=== PATIENT | male | born 1960 | race Caucasian/White ===

== ENCOUNTER 2021-01-04 16:21 | Emergency (ER) | payer OTHER ==
[2021-01-04 16:34] VITALS: PULSE 65; TEMP 98.5; BMI 26.8
[2021-01-04 17:07] VITALS: BP 165/78
[2021-01-04 18:11] LABS: URINE APPEARANCE CLEAR; URINE BILIRUBIN NEGATIVE (NEGATIVE); URINE COLOR YELLOW; URINE GLUCOSE (UA) NEGATIVE (NEGATIVE); URINE KETONE NEGATIVE (NEGATIVE); URINE LEUK ESTERASE NEGATIVE (NEGATIVE); URINE NITRITE NEGATIVE (NEGATIVE); URINE PROTEIN NEGATIVE (NEGATIVE); URINE UROBILINOGEN 0.2 mg/dL (0.2-1.0)
[2021-01-04 18:45] LABS: EOS % 2.9 % (0-4.5); HEMATOCRIT 45.1 % (35.4-49); HEMOGLOBIN 15.3 GM/dL (11.7-16.9); LYMPH % 32.9 % (8-40); MCH 30.9 pg (25.7-33.7); MCHC 33.9 g/dl (32.0-35.9); MEAN CELL VOLUME 91.4 fl (80-96); MEAN PLT VOLUME 8.1 fl (7.5-11.1); MONO % 7.4 % (3.8-10.2); NEUT % 55.8 % (42.8-82.8); PLATELET COUNT 219 K/MM3 (134-434); RBC 4.93 M/mm3 (4.00-5.60); RDW 13.8 % (11.9-15.9); WHITE BLOOD COUNT 6.6 K/mm3 (4.0-10.0)
[2021-01-04 18:55] LABS: INR 1.07 (0.83-1.09); PROTHROMBIN TIME (PATIENT) 13.1 SEC (9.7-13.0)
[2021-01-04 18:57] LABS: ACTIVATED PTT 31.8 SECONDS (25.2-36.5)
[2021-01-04 19:01] LABS: CHLORIDE 107 mmol/L (98-107); POTASSIUM 4.7 mmol/L (3.5-5.1); SODIUM 138 mmol/L (136-145)
[2021-01-04 19:03] LABS: ALBUMIN 4.2 g/dl (3.4-5.0); CALCIUM 9.4 mg/dL (8.5-10.1); GLUCOSE,RANDOM 82 mg/dL (74-106)
[2021-01-04 19:04] LABS: ANION GAP 4 MMOL/L (8-16); BLOOD UREA NITROGEN 19.7 mg/dL (7-18); CO2 27 mmol/L (21-32)
[2021-01-04 19:07] LABS: CHOLESTEROL 243 mg/dL (50-200); SGOT/AST 24 U/L (15-37); SGPT/ALT 20 U/L (13-61); TRIGLYCERIDES 206 mg/dL (0-150)
[2021-01-04 19:08] LABS: BILIRUBIN,TOTAL 0.3 mg/dL (0.2-1); LDL CHOLESTEROL (ONLY SJRH) 172 mg/dL (5-100); TOT PROT 7.2 g/dl (6.4-8.2)
[2021-01-04 19:09] LABS: ALK PHOS 82 U/L (45-117); HDL CHOLESTEROL 36 mg/dL (40-60)
== END 2021-01-04 22:39 | disposition home or self-care (01) ==
LOC: JER 16:21
DX: H53.2 Diplopia (principal)
CPT/HCPCS: 36415; 70450-TC; 70551-TC; 76512; 80053; 80061; 81003; 82550; 83721; 84484; 85025; 85610; 85730; 86850; 86900; 86901; 93005; 93010; 99282-25; C9803; U0003